=== PATIENT | male | born 1960 | race Caucasian/White ===

== ENCOUNTER 2017-05-28 16:02 | Emergency (ER) | payer OTHER ==
[~2017-05-28] VITALS: Ht 172.7 cm; Wt 72.7 kg
[2017-05-28 16:13] VITALS: TEMP 36.9; Ht 172.7 cm; Wt 72.7 kg
[2017-05-28 17:03] LABS: BASO % 0.5 %; BASO ABS # 0.03 K/uL (0-0.2); COMPLETE YES; EOS % 0.9 %; HEMATOCRIT 40.1 % (42-52); IG% 0.2 %; LYMPH % 20.7 %; LYMPH ABS # 1.34 K/uL (1.2-3.4); MEAN CELL VOLUME 87.9 fL (80-100); MEAN CORPUSCULAR HEMOGLOBIN 28.9 pg (25-34); MEAN CORPUSCULAR HGB CONC 32.9 g/dl (32-36); MEAN PLATELET VOLUME 8.6 fL (7.4-10.4); MONO % 5.9 %; NEUT % 71.8 %; PLATELET COUNT 234 K/uL (130-400); RED BLOOD COUNT 4.56 M/uL (4.7-6.1); WHITE BLOOD COUNT 6.46 K/uL (4.8-10.8)
[2017-05-28 17:19] LABS: BLOOD UREA NITROGEN 9 mg/dl (7-18); GLUCOSE 93 mg/dl (70-99)
[2017-05-28 17:20] LABS: BUN/CREATININE RATIO 9.1 (10-20); C-REACTIVE PROTEIN < 0.29 mg/dl (0-0.29); CALCIUM 9.3 mg/dl (8.5-10.1); CARBON DIOXIDE 29 mmol/L (21-32); CHLORIDE 106 mmol/L (98-107); SODIUM 140 mmol/L (136-145)
--- NOTE | 2017-05-28 17:24 | EMERGENCY ROOM VISIT NOTE ---
History Report prepared by Melina: Buzz Horne Under the Supervision of: Dr. Quan Guillermo M.D. First contact with patient: 16:33 Chief Complaint: HEADACHE Stated Complaint: HEACACHE, TINGLE FEELING IN ARMS/HEAD/LEGS History of Present Illness The patient is a 57 year old male who presents to the Emergency Room with complaints of a constant headache beginning around 25 days ago. He currently rates his pain a 4/10 in severity. The patient states his symptoms began 25 days ago with a headache. He reports he buried his dog and dug a huge hole to place the dog in before his onset. The patient notes he was crying a lot and thought that was why his headache started. He states that his headache has persisted since. The patient reports 13 days ago, the numbness in his arms began and spread to his legs. He notes he saw his PCP and was placed on Doxy for a potential tick bite. The patient states he had blood work drawn and his levels were okay. He reports he has tried Advil for his discomfort, but it has not helped. The patient notes he saw a neurologist yesterday for numbness to the extremities, and he has an MRI scheduled in 5 days. He states he came to the ED today because he moved a 30lb piece of equipment, and he started to feel extremely weird on the right side. The patient reports it lasted for 45 minutes in his legs, and it is still present in his arms. He notes he did not lose leaf fat scraper strength, it just feels tingly. The patient states it feels like there is pressure behind his ears. Pt denies LOC, fevers, chills, diaphoresis, visual changes, neck pain, chest pain, breathing difficulties, nausea, vomiting, abdominal pain, back pain, melena, hematochezia, urinary symptoms, weakness, lymphadenopathy, rash, or other complaints. Source of History: patient Onset: 25 days ago Position: head Quality: ache Timing: constant Associated Symptoms: + numbness (to the arms and legs) Note: Associated symptoms: pressure behind the ears Review of Systems See HPI for pertinent positives and negatives. A total of ten systems were reviewed and were otherwise negative. Past Medical & Surgical The patient states he does not have a pertinent medical or surgical history. Family History Cancer Diabetes mellitus Gallbladder disease Hypertension Lung disease Social History Smoking Status: Never Smoker Smokeless Tobacco Use: No Alcohol Use: occasionally Marital Status: Housing Status: lives with significant other Occupation Status: employed Current/Historical Medications No Active Prescriptions or Reported Meds Allergies Coded Allergies: No Known Allergies (Unverified , 05/28/17) Physical Exam Vital Signs Date Time Temp Pulse Resp B/P (MAP) Pulse Ox O2 Delivery O2 Flow Rate FiO2 05/28/17 22:20 57 21 98 05/28/17 22:05 53 14 98 05/28/17 22:02 104/64 05/28/17 21:50 72 12 98 05/28/17 21:45 55 14 98 05/28/17 21:31 131/80 05/28/17 21:30 58 14 97 05/28/17 21:15 55 21 98 05/28/17 21:01 108/77 05/28/17 21:00 55 13 96 05/28/17 20:49 133/81 05/28/17 18:09 62 05/28/17 18:07 63 13 98 05/28/17 18:02 65 16 99 05/28/17 18:01 138/85 05/28/17 17:40 140/87 05/28/17 17:32 60 21 05/28/17 16:13 36.9 66 16 133/87 97 Room Air Physical Exam GENERAL: Awake, alert, well appearing, no distress HENT: Normocephalic, atraumatic. TM's normal. Oropharynx unremarkable. EYES: PERRL. EOMI. Normal conjunctiva. Sclera non-icteric. NECK: Supple. No nuchal rigidity. FROM. No JVD or bruit. RESPIRATORY: CTA CARDIAC: RRR. No murmur. ABDOMEN: Soft, non distended. No tenderness to palpation. No rebound or guarding. No masses. RECTAL: Deferred. MUSCULOSKELETAL: Unremarkable. No edema. No discoloration. Gross motor strength symmetric. NEURO: Cranial nerves 2-12 grossly intact. Normal sensorium. No sensory or motor deficits noted. Speech normal. No pronator drift. Normal heal to dias. Normal rapid alternating movement. SKIN: No rash or jaundice noted. LYMPH: No adenopathy. Medical Decision & Procedures ER Provider Diagnostic Interpretation: Radiology results as stated below per my review and radiologist interpretation: CERVICAL SPINE MRI WITH AND WITHOUT CONTRAST HISTORY: HEADACHES, U/L EXTREMITY NUMBNESS, R>L . REF. BY NEUROLOGY. TECHNIQUE: Multiplanar multisequence MRI of the cervical spine was performed both before and after the use of intravenous contrast. COMPARISON STUDY: None. FINDINGS: Alignment and curvature intact. No fracture or subluxation. Prevertebral soft tissues and the C1-C2 interval are intact. No abnormal enhancement. The cervical spinal cord is normal in course, caliber, and signal intensity. Minimal disc space narrowing at C4-C5 and C5-C6. C2-C3: No significant central canal or neural foraminal narrowing. C3-C4: Tiny broad-based posterior disc bulge which abuts but does not displace the anterior cord. No neural foraminal narrowing. C4-C5: Tiny broad-based posterior disc bulge with a tiny focal central annular tear. This abuts but does not displace the cord. No neural foraminal narrowing. C5-C6: Tiny broad-based posterior disc bulge which abuts but does not displace the cord. No neural foraminal narrowing. C6-C7: Tiny broad-based posterior disc bulge without significant central canal or neural foraminal narrowing. C7-T1: No significant central canal or neural foraminal narrowing. IMPRESSION: Minimal degenerative changes as described above. No significant central canal or neural foraminal narrowing. Electronically signed by: Bennett Nick M.D. 05/28/2017 9:02 PM Dictated Date/Time: 05/28/2017 8:56 PM Brain MRI WITH AND WITHOUT CONTRAST HISTORY: HEADACHES, U/L EXTREMITY NUMBNESS, R>L . REF. BY NEUROLOGY. TECHNIQUE: Multiplanar multisequence MRI of the brain was performed both before and after the intravenous administration of contrast. COMPARISON STUDY: None. FINDINGS: There are no areas of restricted diffusion to suggest acute infarction. The midline structures are intact. The paranasal sinuses are clear. The mastoid air cells are clear. The ventricles and sulci are within normal limits for age. There is no mass, hematoma, midline shift. The major vascular flow-voids at the skull base are well maintained. Postcontrast sequences show no areas of abnormal enhancement. Within the right petrous apex there is a 1.5 x 1.0 cm septated T1 and T2 hyperintense focus. This favors a cholesterol granuloma. IMPRESSION: 1 No acute intracranial abnormality. 2. A 1.5 x 1.2 cm T1 and T2 hyperintense focus within the right petrous apex. This favors a cholesterol granuloma. Electronically signed by: Bennett Nick M.D. 05/28/2017 8:56 PM Dictated Date/Time: 05/28/2017 8:50 PM Laboratory Results 05/28/17 16:45 Red Blood Count 4.56, Mean Corpuscular Volume 87.9, Mean Corpuscular Hemoglobin 28.9, Mean Corpuscular Hemoglobin Concent 32.9, Mean Platelet Volume 8.6, Neutrophils (%) (Auto) 71.8, Lymphocytes (%) (Auto) 20.7, Monocytes (%) (Auto) 5.9, Eosinophils (%) (Auto) 0.9, Basophils (%) (Auto) 0.5, Neutrophils # (Auto) 4.64, Lymphocytes # (Auto) 1.34, Monocytes # (Auto) 0.38, Eosinophils # (Auto) 0.06, Basophils # (Auto) 0.03 05/28/17 16:45 Test 05/28/17 16:45 White Blood Count 6.46 K/uL (4.8-10.8) Red Blood Count 4.56 M/uL (4.7-6.1) Hemoglobin 13.2 g/dL (14.0-18.0) Hematocrit 40.1 % (42-52) Mean Corpuscular Volume 87.9 fL (80-100) Mean Corpuscular Hemoglobin 28.9 pg (25-34) Mean Corpuscular Hemoglobin Concent 32.9 g/dl (32-36) Platelet Count 234 K/uL (130-400) Mean Platelet Volume 8.6 fL (7.4-10.4) Neutrophils (%) (Auto) 71.8 % Lymphocytes (%) (Auto) 20.7 % Monocytes (%) (Auto) 5.9 % Eosinophils (%) (Auto) 0.9 % Basophils (%) (Auto) 0.5 % Neutrophils # (Auto) 4.64 K/uL (1.4-6.5) Lymphocytes # (Auto) 1.34 K/uL (1.2-3.4) Monocytes # (Auto) 0.38 K/uL (0.11-0.59) Eosinophils # (Auto) 0.06 K/uL (0-0.5) Basophils # (Auto) 0.03 K/uL (0-0.2) RDW Standard Deviation 39.0 fL (36.4-46.3) RDW Coefficient of Variation 12.1 % (11.5-14.5) Immature Granulocyte % (Auto) 0.2 % Immature Granulocyte # (Auto) 0.01 K/uL (0.00-0.02) Erythrocyte Sedimentation Rate 3 mm/hr (0-14) Anion Gap 5.0 mmol/L (3-11) Est Creatinine Clear Calc Drug Dose 80.7 ml/min Estimated GFR () 97.8 Estimated GFR (Non- 84.4 BUN/Creatinine Ratio 9.1 (10-20) Calcium Level 9.3 mg/dl (8.5-10.1) C-Reactive Protein < 0.29 mg/dl (0-0.29) Lyme Disease IgG Antibody NEG (NEG) Lyme Disease IgM Antibody NEG (NEG) Laboratory results reviewed by me ED Course 164: The patient was evaluated in room C11B. A complete history and physical exam was performed. 1654: I discussed the patient's case with Dr. Thornton, Neurology. He recommended getting an MRI of the brain and cervical spine, both with and without contrast. 2004: Ordered Gadobutrol 7mmol IV 2047: I reevaluated the patient, and he is still experiencing his symptoms. 2221: I reevaluated the patient. Discussed results and discharge instructions: he verbalized understanding and agreement. The patient is ready for discharge. Medical Decision Triage Nursing notes reviewed. The patient's presentation and history were concerning for numbness and headache. Etiologies such as MS, migraine, tumor, headache, sinus thrombosis, CVA, ICH, SAH, infection, as well as others were entertained. Patient was evaluated. He noted unusual sensations but had no focal deficits on examination. [place] that symptoms were worsening. I did discuss with his neurologist, Dr. Thornton who recommended MRI with and without contrast cervical spine. These were ordered. Blood work was ordered. Laboratory testing was unremarkable. MR imaging was unremarkable as noted above. As the patient is stable at this time and there are no major issues on MR imaging he is stable for discharge and outpatient follow-up. The exact etiology of his symptoms is not obvious. Further evaluation by neurology in his PCP will be necessary.I gave my usual and customary discussion regarding this issue. By the evaluation outlined above other emergent etiologies such as those listed in the differential, as well as others, were deemed relatively unlikely. The patient was educated about the findings as listed above. All questions were answered and the patient was pleased with the treatment. Return instructions were outlined and the patient was discharged in stable condition. The patient was referred to neurology and his PCP for follow-up for a recheck of the current condition. Impression Primary Impression: Numbness Additional Impression: Headache Scribe Attestation The scribe's documentation has been prepared under my direction and personally reviewed by me in its entirety. I confirm that the note above accurately reflects all work, treatment, procedures, and medical decision making performed by me. Departure Information Dispostion Home / Self-Care Prescriptions No Active Prescriptions or Reported Meds Referrals Horace Porras M.D. (PCP) Forms HOME CARE DOCUMENTATION FORM, IMPORTANT VISIT INFORMATION Patient Instructions My [facility] Additional Instructions Continue current medications. Tylenol: Take 1000 mg every 6 hours as needed for pain. Do not take more than 3000 mg in a 24 hour period. And/or Ibuprofen(Motrin, Advil) may be used for fever or pain. Use 600mg every six hours as needed. Take with food. Avoid using more than 2400mg in a 24 hour period. Do not use 2400mg per day for more than three consecutive days without physician direction. Prolonged inappropriate use can lead to stomach upset or ulcers. Return to the ER for headache, passing out, difficulty breathing, fevers, numbness, tingling, worsening of your condition, or as needed. Follow up with your primary physician tomorrow. Problem Qualifiers
[2017-05-28 18:25] LABS: LYME DISEASE AB IGG NEG (NEG); LYME DISEASE AB IGM NEG (NEG)
[2017-05-28] MEDS ORDERED: GADAVIST IV PRN (20:05)
--- NOTE | 2017-05-28 20:58 | DIAGNOSTIC IMAGING REPORT ---
Brain MRI WITH AND WITHOUT CONTRAST HISTORY: HEADACHES, U/L EXTREMITY NUMBNESS, R>L . REF. BY NEUROLOGY. TECHNIQUE: Multiplanar multisequence MRI of the brain was performed both before and after the intravenous administration of contrast. COMPARISON STUDY: None. FINDINGS: There are no areas of restricted diffusion to suggest acute infarction. The midline structures are intact. The paranasal sinuses are clear. The mastoid air cells are clear. The ventricles and sulci are within normal limits for age. There is no mass, hematoma, midline shift. The major vascular flow-voids at the skull base are well maintained. Postcontrast sequences show no areas of abnormal enhancement. Within the right petrous apex there is a 1.5 x 1.0 cm septated T1 and T2 hyperintense focus. This favors a cholesterol granuloma. IMPRESSION: 1 No acute intracranial abnormality. 2. A 1.5 x 1.2 cm T1 and T2 hyperintense focus within the right petrous apex. This favors a cholesterol granuloma. Electronically signed by: Bennett Nick M.D. 05/28/2017 8:56 PM Dictated Date/Time: 05/28/2017 8:50 PM
--- NOTE | 2017-05-28 21:03 | DIAGNOSTIC IMAGING REPORT ---
CERVICAL SPINE MRI WITH AND WITHOUT CONTRAST HISTORY: HEADACHES, U/L EXTREMITY NUMBNESS, R>L . REF. BY NEUROLOGY. TECHNIQUE: Multiplanar multisequence MRI of the cervical spine was performed both before and after the use of intravenous contrast. COMPARISON STUDY: None. FINDINGS: Alignment and curvature intact. No fracture or subluxation. Prevertebral soft tissues and the C1-C2 interval are intact. No abnormal enhancement. The cervical spinal cord is normal in course, caliber, and signal intensity. Minimal disc space narrowing at C4-C5 and C5-C6. C2-C3: No significant central canal or neural foraminal narrowing. C3-C4: Tiny broad-based posterior disc bulge which abuts but does not displace the anterior cord. No neural foraminal narrowing. C4-C5: Tiny broad-based posterior disc bulge with a tiny focal central annular tear. This abuts but does not displace the cord. No neural foraminal narrowing. C5-C6: Tiny broad-based posterior disc bulge which abuts but does not displace the cord. No neural foraminal narrowing. C6-C7: Tiny broad-based posterior disc bulge without significant central canal or neural foraminal narrowing. C7-T1: No significant central canal or neural foraminal narrowing. IMPRESSION: Minimal degenerative changes as described above. No significant central canal or neural foraminal narrowing. Electronically signed by: Bennett Nick M.D. 05/28/2017 9:02 PM Dictated Date/Time: 05/28/2017 8:56 PM
[2017-05-28 22:02] VITALS: BP 104/64
[2017-05-28 22:20] VITALS: PULSE 57; O2SAT 98
== END 2017-05-28 22:22 | disposition home or self-care (01) ==
LOC: C.EDB 16:02 → C.EDC 22:22
DX: R20.0 Anesthesia of skin (principal); R51 Headache; Z83.3 Family history of diabetes mellitus; Z82.49 Family history of ischemic heart disease and other diseases of the circulatory system

== ENCOUNTER → 2017-06-18 | Day surgery (SDC) | payer OTHER ==
[~2017-06-18] VITALS: Ht 172.7 cm; Wt 75.0 kg
[2017-06-18] VITALS (10 sets, daily range): BP systolic 123–149; BP diastolic 74–88; PULSE 61–75; TEMP 36.7–37; O2SAT 96–100; Ht 172.7 cm; Wt 75.0 kg
[~2017-06-18] MED LIST: ACETAMINOPHEN 500 MG TAB PO PRN
--- NOTE | 2017-06-18 09:07 | DIAGNOSTIC IMAGING REPORT ---
FLUOROSCOPICALLY GUIDED LUMBAR PUNCTURE CLINICAL HISTORY: Numbness and tingling in extremities. FLUOROSCOPY TIME: 0.3 minutes. Single fluoroscopic spot image of the lumbar spine. PROCEDURE: The procedure, risks and benefits were discussed with the patient including the risk of spinal headache, bleeding and infection. The patient agreed to the procedure and informed written consent was obtained. The procedure was performed by Dr. Nick following a timeout. The left L4-5 interlaminar space was targeted. Skin overlying the space was prepped and draped in the usual sterile fashion and local anesthesia was achieved with 1% lidocaine. Under intermittent fluoroscopic guidance, a 20-gauge x 3 1/2 in. Sprotte needle was inserted into the thecal sac. A total of 10 cc of clear, colorless cerebral spinal fluid was obtained and spread amongst 4 vials. The patient tolerated the procedure well. There were no immediate complications. The specimens were sent to the laboratory at the request of the referring physician. IMPRESSION: Successful fluoroscopic guided lumbar puncture with removal of 10 cc of clear, colorless cerebral spinal fluid. No immediate complications. Electronically signed by: Bennett Nick M.D. 06/18/2017 9:05 AM Dictated Date/Time: 06/18/2017 9:05 AM
[2017-06-18 09:13] LABS: CSF CHEMISTRY TUBE # 1
[2017-06-18 09:20] LABS: CSF TOTAL PROTEIN 38.1 mg/dl (15.0-45.0)
--- NOTE | 2017-06-18 10:15 | Discharge Instructions ---
Discharge Instructions Procedure Procedure Date: Jun 18, 2017. Reason for visit: Numbness/Tingling. Discharge Discharge Date: Jun 18, 2017. Discharge Diagnosis: same Instructions Activity Recommendations: No limitations Return to School/Work: no limitations Recommended Home Diet: Resume Previous Diet Provider Instructions: ACTIVITY RECOMMENDATIONS: * Rest today. * Resume regular activity in one day. MEDICATIONS: * May take Tylenol or Ibuprofen as needed for pain. DIET: * Resume previous diet. SPECIAL CARE INSTRUCTIONS: Call your doctor if: * Temperature above 101 degrees F. * Pain not relieved by pain medicine ordered. * Increased drainage or redness from incision. * Notify your doctor with any questions or concerns. Call your doctor or go to the nearest Emergency Department if you experience: * Increased chest pain or shortness of breath. FOLLOW UP VISIT: Follow-up with Referring Physician as scheduled. Allergies Coded Allergies: No Known Allergies (Unverified , 06/18/17) Arnoldo Puckett Recommendations: Call your doctor if: * Temperature above 101 degrees * Pain not relieved by pain medicine ordered * There is increased drainage or redness from any incision * You have any unanswered questions or concerns. Your Doctors Instructions noted above were prepared by provider Bennett Nick. Patient Signature Section: Patient Instructions Signature Page Mikey Adan Patient (or Guardian) Signature/Date: I have read and understand the instructions given to me by my caregivers. Caregiver/RN/Doctor Signature/Date: The above-named patient and/or guardian has received patient instructions on this date. + Original Patient Signature Page (only) stays with chart. Please make copy for patient.
[2017-06-18 10:29] LABS: CSF APPEARANCE CLEAR; CSF COLOR COLORLESS; CSF XANTHOCHROMIC NO XANTHOCHROMIA
[2017-06-24 09:06] LABS: HSV TYPE 1 DNA Not Detected (Not Detected); HSV TYPE 1&2 DNA SOURCE CSF; HSV TYPE 2 DNA Not Detected (Not Detected); IGG CSF 1.5 mg/dL (0.8-7.7); IGG SERUM 607 mg/dL (694-1618); LYME DNA PCR CSF OR SYNOVIAL Not detected (Not Detected); LYME DNA SOURCE CSF; LYME IGG CSF NO BANDS DETECTED; LYME IGM CSF NO BANDS DETECTED; MYELIN BASIC PROTEIN 663 <2.0 mcg/L (0.0-4.0)
== END | disposition home or self-care (01) ==
LOC: C.ACU 07:10
PROVIDERS: ATTEND Psychiatry & Neurology Neurology
DX: R20.0 Anesthesia of skin (principal)

== ENCOUNTER 2017-06-22 14:13 | Emergency (ER) | payer OTHER ==
[~2017-06-22] VITALS: Ht 172.7 cm; Wt 71.1 kg
[2017-06-22 14:17] VITALS: TEMP 36.7; Ht 172.7 cm; Wt 71.1 kg
--- NOTE | 2017-06-22 14:55 | EMERGENCY ROOM VISIT NOTE ---
History First contact with patient: 14:30 Chief Complaint: HEADACHE Stated Complaint: HEADACHE,NECK PAIN POST LUMBAR PUNCTURE History of Present Illness The patient is a 57 year old male who presents to the Emergency Room with complaints of a 5 day history of a worsening headache. He was being worked up for a 3 month history of low-grade headaches, fatigue and tingling in his arms and legs, and underwent a lumbar puncture 5 days ago. Since then, he reports that his usual headaches (3/10 in severity, all over his head) has now worsened to a 6/10 in severity, and is now associated with neck stiffness. He reports his headache is worse when standing up, and is improved by lying flat. He states his headache worsens as the day goes on, and he tries to work at the computer. He denies dizziness, rhinorrhea, fever, chills, weakness in the arms or legs, visual disturbance or any recent trauma/MVAs. He states he has been feeling nauseous with this headache, and has come close to vomiting. He reports photophobia, and states that advil and tylenol do not help much with the pain. Review of Systems See HPI for pertinent positives & negatives. A total of 10 systems reviewed and were otherwise negative. Past Medical/Surgical History Medical Problems: (1) No chronic diseases present Family History Cancer Diabetes mellitus Gallbladder disease Hypertension Lung disease Social History Smoking Status: Never Smoker Alcohol Use: occasionally Marital Status: Housing Status: lives with significant other Occupation Status: employed Current/Historical Medications No Active Prescriptions or Reported Meds Physical Exam Vital Signs Date Time Temp Pulse Resp B/P (MAP) Pulse Ox O2 Delivery O2 Flow Rate FiO2 06/22/17 16:51 71 16 130/86 99 Room Air 06/22/17 16:00 59 16 132/83 99 Room Air 06/22/17 14:17 36.7 75 18 132/85 97 Room Air Physical Exam HEENT: Head - normocephalic and atraumatic. Pupils are equal, round, and reactive to light. Extraocular eye muscles are intact and sclera are anicteric. Ears - bilaterally patent canals with noninjected tympanic membranes and no evidence of hemotympanum. Nose - moist nasal mucosa without discharge. Mouth - moist buccal mucosa. Oropharynx is nonerythematous and there is no tonsillar exudate or edema noted. Neck: Supple; no JVD, nuchal rigidity, cervical lymphadenopathy, or auscultated bruits. No tenderness on palpation, but he does report his headache and neck pain worsens when changing from looking upwards to looking down. Heart: Regular rate and rhythm. There is a normal S1 and S2 with no murmurs, clicks, or gallops appreciated. Lungs: Clear to auscultation bilaterally with no wheezes, rales, or rhonchi. Abdomen: Soft, completely nontender, nondistended, with good bowel sounds. There are no palpable pulsatile masses or hepatosplenomegaly. There is no guarding, rigidity, or rebound noted. Extremities: No evidence of cyanosis, clubbing, or edema. There are easily palpable peripheral pulses. Neuro:The patient is awake and alert, oriented to day, time, and place. Muscle strength is 5/5 in all 4 extremities. The patient has equal coater smoking pipe strength and equal pedal push and pull. There are no cerebellar signs. Medical Decision & Procedures Laboratory Results 06/22/17 15:35 Red Blood Count 4.22, Mean Corpuscular Volume 87.0, Mean Corpuscular Hemoglobin 31.8, Mean Corpuscular Hemoglobin Concent 36.5, Mean Platelet Volume 8.3, Neutrophils (%) (Auto) 73.3, Lymphocytes (%) (Auto) 19.4, Monocytes (%) (Auto) 6.2, Eosinophils (%) (Auto) 0.7, Basophils (%) (Auto) 0.3, Neutrophils # (Auto) 5.11, Lymphocytes # (Auto) 1.35, Monocytes # (Auto) 0.43, Eosinophils # (Auto) 0.05, Basophils # (Auto) 0.02 06/22/17 15:35 Test 06/22/17 15:35 White Blood Count 6.97 K/uL (4.8-10.8) Red Blood Count 4.22 M/uL (4.7-6.1) Hemoglobin 13.4 g/dL (14.0-18.0) Hematocrit 36.7 % (42-52) Mean Corpuscular Volume 87.0 fL (80-100) Mean Corpuscular Hemoglobin 31.8 pg (25-34) Mean Corpuscular Hemoglobin Concent 36.5 g/dl (32-36) Platelet Count 196 K/uL (130-400) Mean Platelet Volume 8.3 fL (7.4-10.4) Neutrophils (%) (Auto) 73.3 % Lymphocytes (%) (Auto) 19.4 % Monocytes (%) (Auto) 6.2 % Eosinophils (%) (Auto) 0.7 % Basophils (%) (Auto) 0.3 % Neutrophils # (Auto) 5.11 K/uL (1.4-6.5) Lymphocytes # (Auto) 1.35 K/uL (1.2-3.4) Monocytes # (Auto) 0.43 K/uL (0.11-0.59) Eosinophils # (Auto) 0.05 K/uL (0-0.5) Basophils # (Auto) 0.02 K/uL (0-0.2) RDW Standard Deviation 37.8 fL (36.4-46.3) RDW Coefficient of Variation 11.9 % (11.5-14.5) Immature Granulocyte % (Auto) 0.1 % Immature Granulocyte # (Auto) 0.01 K/uL (0.00-0.02) Prothrombin Time 11.4 SECONDS (9.0-12.0) Prothromb Time International Ratio 1.1 (0.9-1.1) Anion Gap 8.0 mmol/L (3-11) Est Creatinine Clear Calc Drug Dose 91.7 ml/min Estimated GFR () 112.1 Estimated GFR (Non- 96.7 BUN/Creatinine Ratio 8.4 (10-20) Calcium Level 8.8 mg/dl (8.5-10.1) Medications Administered Medications (Trade) Dose Ordered Sig/Katt Route Start Time Stop Time Status Last Admin Dose Admin Sodium Chloride 1,000 ml @ 999 mls/hr Q1H1M ONCE IV 06/22/17 15:15 06/22/17 16:15 DC 06/22/17 15:56 999 MLS/HR Caffeine Citrated 500 mg/Sodium Chloride 1,025 ml @ 512.5 mls/ hr TODAY@1600 IV 06/22/17 16:00 06/22/17 19:00 06/22/17 16:23 512.5 MLS/HR Diphenhydramine HCl (Benadryl Inj) 50 mg STK-MED ONCE .ROUTE 06/22/17 15:50 06/22/17 15:51 DC 06/22/17 15:56 25 MG Prochlorperazine Edisylate (Compazine Inj) 10 mg STK-MED ONCE .ROUTE 06/22/17 15:50 06/22/17 15:51 DC 06/22/17 15:56 5 MG ED Course 14:34: The patient was evaluated in room B9. 14:55: The case was discussed with the attending, Dr. Whelan 15:48: The patient reports his headache is improving with the compazine. I explained his headache is likely due to a spinal leak, and we will try fluids and caffeine first, before calling anesthesiology and stepping up to a blood patch. He was in agreement with this plan 17:11: Patient was re-evaluated. He is sitting up and reports an improvement in his headache. Will try having him walk around to see how he fares with the headache. 17:35: Patient states he is feeling fine. Will go for a walk around the halls. 17:53: Patient states he is fine with standing and walking around. Headache has not returned. Patient states he is comfortable being discharged. Medical Decision The patient is a 57 year old male who presents to the Emergency Room with complaints of a 5 day history of a worsening headache following a lumbar puncture. Differentials include: spinal headache, meningitis, migraine, cluster headache, tension headache. His bloodwork came back negative for an infection - WCC was normal. Given that his symptoms improved with 1L bolus and IV caffeine, his symptoms were likely due to a spinal headache. Impression Primary Impression: Spinal headache Departure Information Dispostion Home / Self-Care Prescriptions No Active Prescriptions or Reported Meds Referrals Horace Porras M.D. (PCP) Patient Instructions My [facility] Additional Instructions You came to [facility] emergency department due to a severe headache that occurred after you had your lumbar puncture 5 days ago. We checked your white cell count while you were here to ensure your symptoms were not due to an infection, and they were normal. Your headache was likely a spinal headache, which occurs when your spinal fluid leaks through the puncture hole that was made during your lumbar puncture. This leakage decreases the pressure in your spinal fluid system which subsequently causes a headache. We treated you with intravenous fluids and caffeine. Please continue to drink plenty of fluids and caffeine when you return home, and lay down flat as you have been doing to alleviate your symptoms. As you start to feel better, you can resume regular activities as tolerated. If your headache worsens again or if you experience nausea, vomiting, problems with your vision, or ringing in your ears, please come back to the emergency department. Resident Tracking Resident Involvement: Resident Care Provided Care Provided: Adult ED
[2017-06-22] MEDS ORDERED: PROCHLORPERAZINE MALEATE 5 MG TAB PO ONE (15:15)
[2017-06-22] MEDS ORDERED: SODIUM CHLORIDE 0.9% 1000ML 1,000 ML IV ONE (15:15)
[2017-06-22] MEDS ORDERED: DiphenhydrAMINE HCL 50 MG/ML VIAL ONE (15:50)
[2017-06-22] MEDS ORDERED: PROCHLORPERAZINE 5 MG/ML 2 ML VIAL ONE (15:50)
[2017-06-22 15:51] LABS: BASO % 0.3 %; BASO ABS # 0.02 K/uL (0-0.2); COMPLETE YES; EOS % 0.7 %; HEMATOCRIT 36.7 % (42-52); IG% 0.1 %; LYMPH % 19.4 %; LYMPH ABS # 1.35 K/uL (1.2-3.4); MEAN CORPUSCULAR HEMOGLOBIN 31.8 pg (25-34); MEAN CORPUSCULAR HGB CONC 36.5 g/dl (32-36); MEAN PLATELET VOLUME 8.3 fL (7.4-10.4); MONO % 6.2 %; NEUT % 73.3 %; PLATELET COUNT 196 K/uL (130-400); RED BLOOD COUNT 4.22 M/uL (4.7-6.1); WHITE BLOOD COUNT 6.97 K/uL (4.8-10.8)
[2017-06-22 15:57] LABS: INR 1.1 (0.9-1.1); PROTHROMBIN TIME (PATIENT) 11.4 SECONDS (9.0-12.0)
[2017-06-22] MEDS ORDERED: CAFFEINE CITRATE 500 MG in SODIUM CHLORIDE 0.9% 1000ML 1,000 ML IV SCH (16:00)
[2017-06-22 16:11] LABS: BUN/CREATININE RATIO 8.4 (10-20); CALCIUM 8.8 mg/dl (8.5-10.1); CREATININE 0.88 mg/dl (0.60-1.40); POTASSIUM 3.9 mmol/L (3.5-5.1)
--- NOTE | 2017-06-22 18:09 | EMERGENCY ROOM VISIT NOTE ---
History Report prepared by Melina: Phill Villa Under the Supervision of: Dr. Jigar Whelan M.D. First contact with patient: 14:29 Chief Complaint: HEADACHE Stated Complaint: HEADACHE,NECK PAIN POST LUMBAR PUNCTURE History of Present Illness The patient is a 57 year old male who presents to the Emergency Room with complaints of a worsening headache that started a few days ago after having a lumbar puncture 4 days. He says that he is currently in the process of getting worked up for a low-grade headache and fatigue, with bilateral numbness and tingling in his extremities. He states that his headache was diffuse previously and a 3 out of 10 in severity, but after the lumbar puncture, his headache slowly worsened to the point of it being a 6 out of 10 in severity, and the headache is now mostly localized in his frontal region. The patient notes that the headache is worsened with standing and relieved by laying flat. He describes his headache has dull and throbbing. He notes that he has taken Tylenol and Advil, which takes the edge off the pain but does not help much. He says that he has been nauseous but has not vomited, but has come close. He states that the headache gets worse as the day goes on. The patient adds that he has had some photophobia, but denies any visual disturbances. He says that he started to get some neck pain and stiffness a couple days ago. The patient denies any fevers, chills, or recent trauma. He is a non-smoker, and does not drink alcohol or use recreational drugs. He does regularly drink caffeine. The patient notes that there were no complications with the lumbar puncture. Source of History: patient Onset: A few days ago after lumbar puncture 4 days ago Position: head (frontal region mostly) Symptom Intensity: up to a 6/10 Quality: ache, dull, other (throbbing) Timing: worsening Modifying Factors (Worsening): other (standing) Modifying Factors (Relieving): other (laying down) Associated Symptoms: + neck pain, + nausea, + fatigue, No fevers, No chills , No vomiting Note: Associated symptoms: Photophobia. Bilateral tingling and numbness for past month or so. Denies visual disturbances. Review of Systems See HPI for pertinent positives & negatives. A total of 10 systems reviewed and were otherwise negative. Past Medical & Surgical Medical Problems: (1) No chronic diseases present Family History Cancer Diabetes mellitus Gallbladder disease Hypertension Lung disease Social History Smoking Status: Never Smoker Alcohol Use: occasionally Marital Status: Housing Status: lives with significant other Occupation Status: employed Current/Historical Medications No Active Prescriptions or Reported Meds Allergies Coded Allergies: No Known Allergies (Unverified , 06/22/17) Physical Exam Vital Signs Date Time Temp Pulse Resp B/P (MAP) Pulse Ox O2 Delivery O2 Flow Rate FiO2 06/22/17 16:51 71 16 130/86 99 Room Air 06/22/17 16:00 59 16 132/83 99 Room Air 06/22/17 14:17 36.7 75 18 132/85 97 Room Air Physical Exam Constitutional: Vital signs reviewed. Eyes: Pupils are equal round reactive to light. Conjunctiva are noninjected. ENT: Pharynx is clear without erythema or exudate. Mucous membranes are moist. Neck supple without meningeal signs. Respiratory: Clear to auscultation bilaterally. Breath sounds are equal bilaterally. Cardiovascular: Regular rate and rhythm. No rubs or gallops. GI: Soft, nondistended and nontender. Bowel sounds are present. Musculoskeletal: No tenderness or signs of erythema to the lumbar spine. No peripheral edema. Integumentary: No cyanosis. Neurological: The patient is awake and alert. Cranial nerves II-XII are intact. Motor is 5 out of 5 all extremities. Sensation is intact to light touch all extremities. Normal speech. No pronator drift. Psychiatric: Normal affect. Medical Decision & Procedures Laboratory Results 06/22/17 15:35 Red Blood Count 4.22, Mean Corpuscular Volume 87.0, Mean Corpuscular Hemoglobin 31.8, Mean Corpuscular Hemoglobin Concent 36.5, Mean Platelet Volume 8.3, Neutrophils (%) (Auto) 73.3, Lymphocytes (%) (Auto) 19.4, Monocytes (%) (Auto) 6.2, Eosinophils (%) (Auto) 0.7, Basophils (%) (Auto) 0.3, Neutrophils # (Auto) 5.11, Lymphocytes # (Auto) 1.35, Monocytes # (Auto) 0.43, Eosinophils # (Auto) 0.05, Basophils # (Auto) 0.02 06/22/17 15:35 Test 06/22/17 15:35 White Blood Count 6.97 K/uL (4.8-10.8) Red Blood Count 4.22 M/uL (4.7-6.1) Hemoglobin 13.4 g/dL (14.0-18.0) Hematocrit 36.7 % (42-52) Mean Corpuscular Volume 87.0 fL (80-100) Mean Corpuscular Hemoglobin 31.8 pg (25-34) Mean Corpuscular Hemoglobin Concent 36.5 g/dl (32-36) Platelet Count 196 K/uL (130-400) Mean Platelet Volume 8.3 fL (7.4-10.4) Neutrophils (%) (Auto) 73.3 % Lymphocytes (%) (Auto) 19.4 % Monocytes (%) (Auto) 6.2 % Eosinophils (%) (Auto) 0.7 % Basophils (%) (Auto) 0.3 % Neutrophils # (Auto) 5.11 K/uL (1.4-6.5) Lymphocytes # (Auto) 1.35 K/uL (1.2-3.4) Monocytes # (Auto) 0.43 K/uL (0.11-0.59) Eosinophils # (Auto) 0.05 K/uL (0-0.5) Basophils # (Auto) 0.02 K/uL (0-0.2) RDW Standard Deviation 37.8 fL (36.4-46.3) RDW Coefficient of Variation 11.9 % (11.5-14.5) Immature Granulocyte % (Auto) 0.1 % Immature Granulocyte # (Auto) 0.01 K/uL (0.00-0.02) Prothrombin Time 11.4 SECONDS (9.0-12.0) Prothromb Time International Ratio 1.1 (0.9-1.1) Anion Gap 8.0 mmol/L (3-11) Est Creatinine Clear Calc Drug Dose 91.7 ml/min Estimated GFR () 112.1 Estimated GFR (Non- 96.7 BUN/Creatinine Ratio 8.4 (10-20) Calcium Level 8.8 mg/dl (8.5-10.1) Laboratory results as reviewed by me. Medications Administered Medications (Trade) Dose Ordered Sig/Katt Route Start Time Stop Time Status Last Admin Dose Admin Sodium Chloride 1,000 ml @ 999 mls/hr Q1H1M ONCE IV 06/22/17 15:15 06/22/17 16:15 DC 06/22/17 15:56 999 MLS/HR Caffeine Citrated 500 mg/Sodium Chloride 1,025 ml @ 512.5 mls/ hr TODAY@1600 IV 06/22/17 16:00 06/22/17 19:00 06/22/17 16:23 512.5 MLS/HR Diphenhydramine HCl (Benadryl Inj) 50 mg STK-MED ONCE .ROUTE 06/22/17 15:50 06/22/17 15:51 DC 06/22/17 15:56 25 MG Prochlorperazine Edisylate (Compazine Inj) 10 mg STK-MED ONCE .ROUTE 06/22/17 15:50 06/22/17 15:51 DC 06/22/17 15:56 5 MG ED Course 1434: The patient was evaluated in room B9 by the resident, Dr. Sullivan. A complete history and physical exam was performed. 1504: The patient was evaluated in room B9 by myself. A complete history and physical exam was performed. Ordered Caffeine Citrated 500 mg/Sodium Chloride 1025 ml @ 512.5 mls/hr IV. 1515: Ordered Benadryl Cap 25 mg PO, Compazine Tab 5 mg PO, NSS 1000 ml @ 999 mls/hr IV. 1645: I reevaluated the patient and he says that he feels drowsy but he does not have any significant headache. The patient is trying to sit up currently and see how he feels. 1600: Ordered Caffeine Citrated 500 mg/Sodium Chloride 1,025 ml @ 512.5 mls/hr IV. 1720: The patient is sitting up and does not have a headache. We will try to get the patient up and moving around. Medical Decision This is a 57-year-old male who presents with a headache after lumbar puncture. Differential diagnosis includes post-spinal headache, migraine headache, tension headache, cluster headache. I did perform a limited focused review of portions of the patient's old chart on the electronic medical record. The patient underwent a lumbar puncture on June [address] Nick of radiology. I did evaluate the patient as noted above. The patient has had a headache for some time and has been worked up for this. He had a lumbar puncture recently and noted a increase in his pain. He also states that the pain is worse when he stands up and better when he lies down. His symptoms are consistent with a post-LP headache. He is neurologically intact and has no meningeal signs. The puncture site appears to be well-healed without signs of infection. IV access was established. I did treat patient with normal saline IV. He is also given IV Compazine, Benadryl and caffeine. I did order and review the patient's blood work as noted in the electronic medical record. White blood cell count is not elevated. On reassessment the patient is feeling better. He is able to sit up and walk around without any significant increase of his headache. He did feel well enough for discharge and will continue caffeine intake and fluid intake. Should his headache become worse he will return for blood patch. Resident Physician Supervision Note: I did evaluate and examine this patient myself. I did guide management for the patient. I agree with the resident's (Dr. Sullivan) assessment as discussed. Please see the resident's dictation for further details. Medication Reconcilliation Current Medication List: was personally reviewed by me Blood Pressure Screening Patient's blood pressure: Elevated blood pressure Impression Primary Impression: Spinal headache Scribe Attestation The scribe's documentation has been prepared under my direct and personally reviewed by me in its entirety. I confirm that the note above accurately reflects all work, treatment, procedures, and medical decision making performed by me. Departure Information Dispostion Home / Self-Care Prescriptions No Active Prescriptions or Reported Meds Referrals Horace Porras M.D. (PCP) Patient Instructions My [facility]
[2017-06-22 18:25] VITALS: BP 131/76; PULSE 61; O2SAT 98
== END 2017-06-22 18:15 | disposition home or self-care (01) ==
LOC: C.EDB 14:14
DX: T88.59XA Other complications of anesthesia, initial encounter (principal); X58.XXXA Exposure to other specified factors, initial encounter; Z83.3 Family history of diabetes mellitus; Z82.49 Family history of ischemic heart disease and other diseases of the circulatory system

== ENCOUNTER 2017-08-20 16:26 | Observation (INO) | payer OTHER ==
[~2017-08-20] VITALS: Ht 175.3 cm; Wt 70.1 kg
[2017-08-20 16:52] LABS: BASO % 0.4 %; BASO ABS # 0.04 K/uL (0-0.2); EOS % 1.4 %; EOS ABS # 0.13 K/uL (0-0.5); HEMATOCRIT 39.6 % (42-52); HEMOGLOBIN 13.8 g/dL (14.0-18.0); IG# 0.03 K/uL (0.00-0.02); LYMPH % 15.5 %; LYMPH ABS # 1.43 K/uL (1.2-3.4); MEAN CELL VOLUME 88.8 fL (80-100); MEAN CORPUSCULAR HEMOGLOBIN 30.9 pg (25-34); MEAN CORPUSCULAR HGB CONC 34.8 g/dl (32-36); MEAN PLATELET VOLUME 8.5 fL (7.4-10.4); MONO % 5.2 %; MONO ABS # 0.48 K/uL (0.11-0.59); NEUT % 77.2 %; PLATELET COUNT 225 K/uL (130-400); RED CELL DISTRIBUTION WIDTH CV 12.2 % (11.5-14.5); RED CELL DISTRIBUTION WIDTH SD 39.2 fL (36.4-46.3); WHITE BLOOD COUNT 9.21 K/uL (4.8-10.8)
[2017-08-20] MEDS ORDERED: ALPR-412 PO (16:52)
[2017-08-20] MEDS ORDERED: FAMO20TA11 PO (16:54)
[2017-08-20] MEDS ORDERED: CALC500C3 PO (16:54)
[2017-08-20] MEDS ORDERED: NITROGLYCERIN 0.4 MG SL PER TAB CHARGE SL PRN ×2 (17:00→20:15)
[2017-08-20 17:03] LABS: BLOOD UREA NITROGEN 11 mg/dl (7-18); CALCIUM 9.2 mg/dl (8.5-10.1); CARBON DIOXIDE 29 mmol/L (21-32); CREATININE 0.94 mg/dl (0.60-1.40); GLUCOSE 91 mg/dl (70-99); SODIUM 139 mmol/L (136-145)
--- NOTE | 2017-08-20 17:06 | DIAGNOSTIC IMAGING REPORT ---
CHEST ONE VIEW PORTABLE CLINICAL HISTORY: 57 years-old Male presenting with Chest Pain. TECHNIQUE: Portable upright AP view of the chest was obtained. COMPARISON: 07/10/2016. FINDINGS: Cardiomediastinal silhouette normal. Lungs and pleural spaces clear. Osseous structures normal. Upper abdomen normal. IMPRESSION: 1. No acute cardiopulmonary disease. Electronically signed by: Juan Ga M.D. 08/20/2017 5:05 PM Dictated Date/Time: 08/20/2017 5:04 PM
[2017-08-20 17:08] LABS: CKMB 0.7 ng/ml (0.5-3.6)
[2017-08-20] MEDS ORDERED: MoRPHine SULFATE 4 MG/ML 1 ML CARP\\VIAL IV STA (17:55)
[2017-08-20] MEDS ORDERED: GI COCKTAIL PO ONE (18:00)
[2017-08-20] MEDS ORDERED: LIDOCAINE HCL 2% VISC SOLN 20 ML UDC ONE (18:13)
[2017-08-20] MEDS ORDERED: ALUMINUM/MAGNESIUM SUSP 30 ML UDC ONE (18:13)
[2017-08-20] MEDS ORDERED: ACETAMINOPHEN 325 MG TAB PO PRN (20:15)
[2017-08-20] MEDS ORDERED: ONDANSETRON INJ 2 MG/ML 2 ML VIAL IV PRN (20:15)
[2017-08-20] MEDS ORDERED: ALUMINUM/MAGNESIUM/SIMETH (MAALOX MAX) 30 ML UDC PO PRN (20:15)
[2017-08-20] MEDS ORDERED: MAGNESIUM HYDROXIDE SUSP 30 ML UDC PO PRN (20:15)
[2017-08-20] MEDS ORDERED: POLYETHYLENE (MIRALAX) 17 GM PACK PO PRN (20:15)
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
[2017-08-20] MEDS ORDERED: IV FLUIDS COMPLETED PRN (20:45)
[2017-08-20 21:00] VITALS: BP 148/65; PULSE 71; TEMP 36.6; O2SAT 96; Ht 175.3 cm; Wt 70.1 kg
[2017-08-20] MEDS: ALPRAZOLAM 0.25 MG TAB PO SCH (21:00)
--- NOTE | 2017-08-20 21:00 | NUR ---
A: PT ARRIVED VIA WHEELCHAIR FROM ED IN STABLE CONDITION. VERBAL REPORT OBTAINED FROM SUZIE GUNN. ORIENTED TO ROOM AND SURROUNDINGS. TELE VERIFIED. AT BEDSIDE. PLEASANT AND COOPERATIVE WITH CARE. A&O, VSS, DENIES PAIN/CHEST PAIN AT THIS TIME. LUNG SOUNDS CLEAR, ON ROOM AIR. NO SOB OR RESPIRATORY DISTRESS NOTED. NSR ON MONITOR, RATE 60'S. NO EDEMA. INDEPENDENT AND AMBULATORY IN ROOM. PLAN IS FOR STRESS ECHO IN AM. ENCOURAGED TO RING FOR ASSISTANCE. CALL KO WITHIN REACH, WILL CONTINUE TO MONITOR.
--- NOTE | 2017-08-20 23:34 | EMERGENCY ROOM VISIT NOTE ---
History Report prepared by Melina: Estee Valdez Under the Supervision of: Dr. Adryan Alexander D.O. First contact with patient: 16:32 Chief Complaint: CHEST PAIN Stated Complaint: CHEST PAIN History of Present Illness The patient is a 57 year old male who presents to the Emergency Room with complaints of intermittent chest pain that began almost 2 weeks ago. The patient describes his discomfort as sharp pain in the middle of his chest, behind his sternum. He notes that he feels his heart racing and some chest tightness. The patient notes some shortness of breath and nausea. He states that nothing seems to worsen his pain. The patient states that he thought it was possibly an acid reflux problem, noting he has been taking TUMS, which helped relieve some of his discomfort. He denies being a smoker. Patient denies swelling of calves, recent trips, history of immobilization or recent surgery, prior history of DVT, hemoptysis, history of malignancy, history of smoking, or control/estrogen use.Patient denies diabetes, hypertension, hyperlipidemia, CAD, history of sudden at a young age, and smoking. Pt denies headache, change in vision, fevers, vomiting, diarrhea, pain with urination, and melena. Source of History: patient Onset: 2 weeks ago Position: chest Quality: sharp Timing: intermittent Associated Symptoms: + SOB (some ), + nausea Review of Systems See HPI for pertinent positives & negatives. A total of 10 systems reviewed and were otherwise negative. Past Medical & Surgical Medical Problems: (1) Atypical chest pain (2) No chronic diseases present Family History Cancer Diabetes mellitus Gallbladder disease Hypertension Lung disease Social History Smoking Status: Never Smoker Alcohol Use: occasionally Marital Status: Housing Status: lives with significant other Occupation Status: employed Current/Historical Medications Scheduled Alprazolam (Alprazolam), 0.25 MG PO BID Scheduled PRN Calcium Carbonate (Tums), 500 MG PO DAILY PRN for HEARTBURN Famotidine (Pepcid), 20 MG PO DAILY PRN for HEARTBURN Allergies Coded Allergies: No Known Allergies (Unverified , 08/20/17) Physical Exam Vital Signs Date Time Temp Pulse Resp B/P (MAP) Pulse Ox O2 Delivery O2 Flow Rate FiO2 08/20/17 18:11 71 20 99 08/20/17 18:00 129/81 08/20/17 17:56 70 19 98 08/20/17 17:44 73 18 154/82 98 Room Air 08/20/17 17:41 66 14 08/20/17 17:30 154/82 08/20/17 17:26 68 22 08/20/17 17:11 62 11 08/20/17 17:00 138/85 08/20/17 16:56 64 14 08/20/17 16:42 71 08/20/17 16:41 71 18 08/20/17 16:37 97 Room Air 08/20/17 16:37 97 Room Air 08/20/17 16:37 159/98 08/20/17 16:30 36.9 81 16 151/87 97 Room Air Physical Exam GENERAL: Sitting up in bed, alert, well appearing, well nourished, no distress, non-toxic EYE EXAM: normal conjunctiva. OROPHARYNX: no exudate, no erythema, lips, buccal mucosa, and tongue normal and mucous membranes are moist NECK: supple, no nuchal rigidity, no adenopathy, non-tender LUNGS: Clear to auscultation. Normal chest wall mechanics HEART: no murmurs, S1 normal and S2 normal ABDOMEN: abdomen soft, non-tender, normo-active bowel sounds, no masses, no rebound or guarding. BACK: Back is symmetrical on inspection and there is no deformity, no midline tenderness, no CVA tenderness. SKIN: no rashes and no bruising UPPER EXTREMITIES: Upper extremities are equal bilateral. upper extremities are grossly normal. LOWER EXTREMITIES: Calves are equal bilateral. No pitting edema. NEURO EXAM: Normal sensorium, cranial nerves II-XII grossly intact, normal speech, no gross weakness of arms, no gross weakness of legs. Medical Decision & Procedures ER Provider Diagnostic Interpretation: Radiology results as stated below per my review and the radiologist's interpretation: CHEST ONE VIEW PORTABLE CLINICAL HISTORY: 57 years-old Male presenting with Chest Pain. TECHNIQUE: Portable upright AP view of the chest was obtained. COMPARISON: 07/10/2016. FINDINGS: Cardiomediastinal silhouette normal. Lungs and pleural spaces clear. Osseous structures normal. Upper abdomen normal. IMPRESSION: 1. No acute cardiopulmonary disease. Electronically signed by: Juan Ga M.D. 08/20/2017 5:05 PM Dictated Date/Time: 08/20/2017 5:04 PM Laboratory Results 08/20/17 16:38 Red Blood Count 4.46, Mean Corpuscular Volume 88.8, Mean Corpuscular Hemoglobin 30.9, Mean Corpuscular Hemoglobin Concent 34.8, Mean Platelet Volume 8.5, Neutrophils (%) (Auto) 77.2, Lymphocytes (%) (Auto) 15.5, Monocytes (%) (Auto) 5.2, Eosinophils (%) (Auto) 1.4, Basophils (%) (Auto) 0.4, Neutrophils # (Auto) 7.10, Lymphocytes # (Auto) 1.43, Monocytes # (Auto) 0.48, Eosinophils # (Auto) 0.13, Basophils # (Auto) 0.04 08/20/17 16:38 Test 08/20/17 16:38 White Blood Count 9.21 K/uL (4.8-10.8) Red Blood Count 4.46 M/uL (4.7-6.1) Hemoglobin 13.8 g/dL (14.0-18.0) Hematocrit 39.6 % (42-52) Mean Corpuscular Volume 88.8 fL (80-100) Mean Corpuscular Hemoglobin 30.9 pg (25-34) Mean Corpuscular Hemoglobin Concent 34.8 g/dl (32-36) Platelet Count 225 K/uL (130-400) Mean Platelet Volume 8.5 fL (7.4-10.4) Neutrophils (%) (Auto) 77.2 % Lymphocytes (%) (Auto) 15.5 % Monocytes (%) (Auto) 5.2 % Eosinophils (%) (Auto) 1.4 % Basophils (%) (Auto) 0.4 % Neutrophils # (Auto) 7.10 K/uL (1.4-6.5) Lymphocytes # (Auto) 1.43 K/uL (1.2-3.4) Monocytes # (Auto) 0.48 K/uL (0.11-0.59) Eosinophils # (Auto) 0.13 K/uL (0-0.5) Basophils # (Auto) 0.04 K/uL (0-0.2) RDW Standard Deviation 39.2 fL (36.4-46.3) RDW Coefficient of Variation 12.2 % (11.5-14.5) Immature Granulocyte % (Auto) 0.3 % Immature Granulocyte # (Auto) 0.03 K/uL (0.00-0.02) D-Dimer < 190 ug/L FEU (0-500) Anion Gap 6.0 mmol/L (3-11) Est Creatinine Clear Calc Drug Dose 88.8 ml/min Estimated GFR () 105.4 Estimated GFR (Non- 90.9 BUN/Creatinine Ratio 11.5 (10-20) Calcium Level 9.2 mg/dl (8.5-10.1) Total Creatine Kinase 82 U/L (39-308) Creatine Kinase MB 0.7 ng/ml (0.5-3.6) Creatine Kinase MB Ratio 0.9 (0-3.0) Troponin I < 0.015 ng/ml (0-0.045) Laboratory results per my review. Medications Administered Medications (Trade) Dose Ordered Sig/Katt Route Start Time Stop Time Status Last Admin Dose Admin Nitroglycerin (Nitrostat Tab) 0.4 mg Q5M PRN SL 08/20/17 17:00 08/20/17 21:39 DC 08/20/17 17:44 0.4 MG Miscellaneous Medication (Gi Cocktail) 24 ml NOW ONCE PO 08/20/17 18:00 08/20/17 18:01 DC 08/20/17 18:22 24 ML Morphine Sulfate (MoRPHine SULFATE INJ) 4 mg NOW STAT IV 08/20/17 17:55 08/20/17 17:57 DC 08/20/17 18:21 4 MG ECG Indication: chest pain Rate (beats per minute): 67 Rhythm: sinus rhythm Findings: Q waves (Septal), left axis deviation ED Course ED COURSE: Vital signs were reviewed and showed normal vital signs. The patients medical record was reviewed The above diagnostic studies were performed and reviewed. ED treatments and interventions as stated above. 1632: The patient was evaluated in room A2. A complete history and physical examination was performed. 1700: Ordered Nitroglycerin 0.4 mg SL. 1738: I reevaluated the patient, who states the pain is better. 1755: Ordered Morphine Sulfate Inj 4mg IV. 1800: Ordered GI cocktail 24ml PO. 1813: Ordered Lidocaine HCL 20ml and Maalox Susp 30ml. 1846: I reviewed the patient's case with Dr. Borja. He will evaluate the patient for further management. Medical Decision Differential diagnosis: Etiologies such as cardiac ischemia, aortic dissection, pulmonary embolism, pneumonia, pneumothorax, musculoskeletal, infections, pericarditis, myocarditis , esophageal rupture, gastrointestinal, as well as others were entertained. The patient is a 57 year old male who presents to the ED with complaints of chest pain. Patient has been having this off and on for the past week. Patient does have shortness of breath with this. CBC all BMP was unremarkable. Troponin was negative. D-dimer was negative. EKG was nonischemic. Chest x- ray was unremarkable. Patient was given nitroglycerin glycerin and accommodation with GI cocktail and morphine. He had resolution of his symptoms. He was updated bedside. He complained of multiple different types of chest pain and based on the symptoms I did elect to monitor him overnight after a long discussion with him and his . Medication Reconcilliation Current Medication List: was personally reviewed by me Blood Pressure Screening Patient's blood pressure: Normal blood pressure Consults Time Called: 1845 Consulting Physician: Dr. Borja, [facility] [place] Returned Call: 1845 I reviewed the patient's case with Dr. Borja. He will evaluate the patient for further management. Impression Primary Impression: Precordial chest pain Scribe Attestation The scribe's documentation has been prepared under my direction and personally reviewed by me in its entirety. I confirm that the note above accurately reflects all work, treatment, procedures, and medical decision making performed by me. Departure Information Dispostion Being Evaluated By Hospitalist Referrals Horace Porras M.D. (PCP) Forms Call Back Authorization, HOME CARE DOCUMENTATION FORM, IMPORTANT VISIT INFORMATION Patient Instructions [facility]
[2017-08-20 23:50] VITALS: BP 125/73; PULSE 72; TEMP 36.7; O2SAT 97
--- NOTE | 2017-08-21 00:01 | NUR ---
A/ID: REFER TO EMR FOR HEAD TO TOE ASSESSMENT. PT DENIES COMPLAINTS OF PAIN OR SHORTNESS OF BREATH AT PRESENT TIME. VSS. PT INDEPENDENT IN ROOM. CALL KO WITHIN REACH, WILL CONTINUE TO MONITOR. UNKNOWN D/C AT THIS TIME. PT IS OBSERVATION STATUS.
[2017-08-21 03:30] VITALS: BP 132/80; PULSE 54; TEMP 36.5; O2SAT 97
--- NOTE | 2017-08-21 04:00 | NUR ---
A: REFER TO EMR FOR HEAD TO TOE ASSESSMENT. PT DENIES COMPLAINTS OF PAIN OR SHORTNESS OF BREATH AT PRESENT TIME. VSS. PT REMAINS NPO FOR STRESS. WILL CONTINUE TO MONITOR.
[2017-08-21 07:32] VITALS: BP 119/83; PULSE 66; TEMP 37.1; O2SAT 98
--- NOTE | 2017-08-21 08:00 | NUR ---
A: Nursing assessment complete and documented in emr. A&O. VS WNL. Denies chest pain and sob. Occasional nausea per pt. SR per tele. Lungs cta. Independent in activity. No s/s of acute distress noted. Call garcia within reach and pt instructed to ring for assistance. Will continue to monitor. See emr for full assessment data.
[2017-08-21] MEDS: ALPRAZOLAM 0.25 MG TAB PO SCH ×2 (09:00→12:05)
[2017-08-21] MEDS ORDERED: PANTOprazole INJ 40 MG in SYRINGE 0 ML IV SCH (11:00)
--- NOTE | 2017-08-21 11:50 | EXERCISE STRESS ECHO ---
*NOTICE TO RECEIVING LIBERTARIAN AGENCY This information is strictly Confidential and protected under [place] law. [place] law prohibits you from making any further disclosure of this information unless further disclosure is expressly permitted by the written consent of the person to whom it pertains or is authorized by law. A general authorization for the release of medical or other information is not sufficient for this purpose. Hospital accepts no responsibility if the information is made available to any other person, INCLUDING THE PATIENT. Interpretation Summary * Name: LATRICE MAGANA Study Date: 08/21/2017 10:15 AM BP: 134/82 mmHg * Patient Location: C.2T\S\S230\S\2 HR: 64 * : 1960 (M/d/yyyy) Gender: Male Height: 69 in * Age: 57 yrs Ethnicity: [place] Weight: 156 lb * Ordering Physician: Diane Singh * Referring Physician: Self, Referred * Performed By: Josefa Rajan [facility] * * Reason For Study: CHEST PAIN * BSA: 1.9 m2 * -- Conclusions -- * 1. Negative exercise stress echo for ischemia at >100% MPHR. * 2. Negative stress ECG for ischemia. * 3. Above average functional capacity. Exercised 10:25 min, acheiving 12.4 METS. * 4. No exercise induced chest pain. Normal hemodynamic response to exercise. * 5. Normal resting LV size and function. EF 60-65%. Normal RV size and function. Mild mitral regurgitation. * 6. No prior studies for comparison. Procedure Details * ECHOEX, CPT #[id number] * ECHO COLOR FLOW, CPT #[id number] * ECHO DOPPLER, CPT #[id number] Left Ventricle * The left ventricle is grossly normal size. * There is normal left ventricular wall thickness. * Ejection Fraction = 60-65%. * The left ventricular ejection fraction increases normally with stress. The left ventricular end-systolic cavity size reduces post-stress (normal response). The left ventricular wall motion with stress is normal. Right Ventricle * The right ventricle is grossly normal size. * The right ventricular systolic function is normal as assessed by tricuspid annular plane systolic excursion (TAPSE) (normal >1.5 cm). Atria * The left atrial size is normal. * Borderline right atrial enlargement. * No ASD detected; PFO is not assessed. Mitral Valve * The mitral valve is grossly normal. * There is no mitral valve stenosis. * There is mild mitral regurgitation. Tricuspid Valve * Tricuspid stenosis is absent. * There is trace tricuspid regurgitation. Aortic Valve * The aortic valve opens well. * The aortic valve is trileaflet. * No hemodynamically significant valvular aortic stenosis. * There is no significant aortic regurgitation. Pulmonic Valve * The pulmonary valve is inadequately visualized, but the Doppler data is adequate for interpretation. * There is no pulmonic valvular regurgitation. Great Vessels * The aortic root and proximal ascending aorta are normal sized. Pericardium * There is no pericardial effusion. Stress Parameters * Normal baseline electrocardiogram. * Stress ECG: No ST changes. No arrhythmias. * Arrhythmia noted in recovery: occasional PVC's. * The stress portion of this study was personally supervised by the undersigned interpreting physician. * Rest heart rate was '64' BPM. * Rest blood pressure was '134/82' * Maximum heart rate achieved was 171 bpm. * Maximum heart rate was 103 % of maximum age-predicted heart rate. * Maximum blood pressure was '150/76' * Total exercise time was '10:25' * Maximum exercise MET level achieved was '12.40' METS * Maximum treadmill speed was '4.20' miles per hour. * Maximum treadmill elevation was '16.00'% grade. Left Ventricular Findings with Stress * The study was technically excellent with all images being of optimal quality. MMode 2D Measurements and Calculations IVSd 0.81 cm IVSs 1.2 cm LVIDd 5.0 cm LVIDs 3.2 cm LVPWd 0.93 cm LVPWs 1.3 cm IVS/LVPW 0.87 FS 34.9 % EDV(Teich) 117.2 ml ESV(Teich) 42.3 ml EF(Teich) 63.9 % EDV(cubed) 123.6 ml ESV(cubed) 34.1 ml EF(cubed) 72.4 % % IVS thick 52.3 % % LVPW thick 38.0 % LV mass(C)d 149.9 grams LV mass(C)dI 80.7 grams/m\S\2 LV mass(C)s 130.7 grams LV mass(C)sI 70.3 grams/m\S\2 SV(Teich) 74.9 ml SI(Teich) 40.3 ml/m\S\2 SV(cubed) 89.5 ml SI(cubed) 48.2 ml/m\S\2 Ao root diam 3.0 cm Ao root area 6.9 cm\S\2 ACS 2.1 cm LA dimension 2.0 cm LA/Ao 0.67 LVOT diam 1.8 cm LVOT area 2.5 cm\S\2 LVAd ap4 29.9 cm\S\2 LVLd ap4 7.3 cm EDV(MOD-sp4) 101.0 ml EDV(sp4-el) 103.1 ml LVAs ap4 16.5 cm\S\2 LVLs ap4 5.7 cm ESV(MOD-sp4) 40.1 ml ESV(sp4-el) 40.5 ml EF(MOD-sp4) 60.3 % EF(sp4-el) 60.8 % LVAd ap2 22.9 cm\S\2 LVLd ap2 6.9 cm EDV(MOD-sp2) 63.5 ml EDV(sp2-el) 64.8 ml LVAs ap2 12.5 cm\S\2 LVLs ap2 5.3 cm ESV(MOD-sp2) 24.6 ml ESV(sp2-el) 24.8 ml EF(MOD-sp2) 61.3 % EF(sp2-el) 61.7 % LVLd %diff -6.76 % EDV(MOD-bp) 83.4 ml LVLs %diff -6.76 % ESV(MOD-bp) 32.5 ml EF(MOD-bp) 61.1 % SV(MOD-sp4) 60.9 ml SI(MOD-sp4) 32.7 ml/m\S\2 SV(MOD-sp2) 38.9 ml SI(MOD-sp2) 20.9 ml/m\S\2 SV(MOD-bp) 50.9 ml SI(MOD-bp) 27.4 ml/m\S\2 SV(sp4-el) 62.7 ml SI(sp4-el) 33.7 ml/m\S\2 SV(sp2-el) 40.0 ml SI(sp2-el) 21.5 ml/m\S\2 Doppler Measurements and Calculations MV E max benji 106.8 cm/sec MV A max benji 60.9 cm/sec MV E/A 1.8 MV P1/2t max benji 131.1 cm/sec MV P1/2t 90.7 msec MVA(P1/2t) 2.4 cm\S\2 MV dec slope 423.5 cm/sec\S\2 MV dec time 0.23 sec Ao V2 max 163.1 cm/sec Ao max PG 10.6 mmHg Ao max PG (full) 6.2 mmHg BAIRON(V,A) 1.6 cm\S\2 BAIRON(V,D) 1.6 cm\S\2 LV V1 max PG 4.4 mmHg LV V1 max 105.2 cm/sec MR max benji 629.0 cm/sec MR max PG 158.2 mmHg PA V2 max 125.1 cm/sec PA max PG 6.3 mmHg TR max benji 259.4 cm/sec
[2017-08-21] MEDS ORDERED: RANI150T85 PO (13:05)
[2017-08-21] MEDS ORDERED: ZLF50 PO (13:05)
[2017-08-21] MEDS ORDERED: SERT1TAB88 PO (13:13)
[2017-08-21] MEDS ORDERED: PANT1TAB4 PO (13:17)
--- NOTE | 2017-08-21 13:19 | Discharge Instructions ---
Discharge Instructions Date of Service Aug 21, 2017. Admission Reason for Admission: Atypical Chest Pain Discharge Discharge Diagnosis / Problem: Atypical chest pain due to indigestion and anxiety Discharge Goals Goal(s): Decrease discomfort, Improve function, Increase independence, Improve disease control Activity Recommendations Activity Limitations: resume your previous activity Lifting Limitations: none, gradually increase as tolerated Exercise/Sports Limitations: rest today, gradually increase as tolerated May Resume Sexual Activity: when tolerated Shower/Bathe: no limitations Driving or Machine Use: no limitations . Instructions / Follow-Up Instructions / Follow-Up You were admitted to [facility] with chest pain and diagnosed with chest pain secondary to indigestion and anxiety. During your stay here you were treated with supportive care, had EKG completed, cardiac biomarkers were trended x 3 and were negative. Imaging studies which were completed include Stress treadmill echocardiogram, and was normal. Medications: You have been started on a medication called Zoloft (sertraline), a member of the Selective Serotonin reuptake inhibitors (SSRI's) category, for relieft of anxiety and improvement in your mood. C 1. Continue taking Zoloft 25 mg daily x next 4 weeks. Discuss with your PCP at follow up appointment to determine if the dose needs to be adjusted. You will likely not see immediate effect with this medication, because it takes 2-4 weeks to work. Side effects may include but are not limited to headache, gastrointestinal upset (nausea, vomiting, diarrhea), lightheadedness, dizziness. 2. Start taking Zantac (ranitidine)150 mg at bedtime to aid in indigestion. 3. Start taking Protonix (pantoprazole) 40 mg in the morning for indigestion. You may continue using tums on an as needed basis. 4. Continue taking all other medications as prescribed. Appointments: Follow up with your Primary Care Provider within 1 week. Current Hospital Diet Patient's current hospital diet: AHA Diet (Heart Healthy) Discharge Diet Recommended Diet: AHA Diet (Heart Healthy) Procedures Procedures Performed: Stress treadmill echocardiogram- normal Pending Studies Studies pending at discharge: no Laboratory Results Lipid Panel Test 08/21/17 05:37 Range/Units Triglycerides Level 74 0-150 mg/dl Cholesterol Level 196 0-200 mg/dl HDL Cholesterol 44 mg/dl Cholesterol/HDL Ratio 4.5 LDL Cholesterol, Calculated 137 mg/dl Medical Emergencies . Who to Call and When: Medical Emergencies: If at any time you feel your situation is an emergency, please call 911 immediately. . Non-Emergent Contact Non-Emergency issues call your: Primary Care Provider Call Non-Emergent contact if: you have a fever, temperature is above 100.5, your pain is not controlled, your pain is worsening, your pain is unusual for you, your pain is concerning you, you have any medication questions . Past History Medical & Surgical History: (1) Atypical chest pain (2) GERD (gastroesophageal reflux disease) (3) SALVADOR (generalized anxiety disorder) . "Provider Documentation" section prepared by Cindy Langston. . VTE Core Measure Inpt VTE Proph given/why not?: Krystin Villareal, SCD's
[2017-08-21] MEDS ORDERED: SERTRALINE HCL 50 MG TAB PO ONE (13:30)
--- NOTE | 2017-08-21 13:45 | Discharge Summary ---
Discharge Summary Date of Service Aug 21, 2017. Discharge Summary Admission Date: Aug 20, 2017 at 20:07 Discharge Date: Aug 21, 2017 Discharge Disposition: Home Principal Diagnosis: Atypical chest pain due to indigestion and anxiety Problems/Secondary Diagnoses: Chest pain - resolved GERD [place] Procedures: CHEST ONE VIEW PORTABLE 08/20/17 FINDINGS: Cardiomediastinal silhouette normal. Lungs and pleural spaces clear. Osseous structures normal. Upper abdomen normal. IMPRESSION: 1. No acute cardiopulmonary disease. Stress Treadmill Echocardiogram Interpretation Summary * Name: LATRICE MAGANA Study Date: 08/21/2017 10:15 AM BP: 134/82 mmHg * Patient Location: .2T\\S\\S230\\S\\2 HR: 64 * : 1960 (M/d/yyyy) Gender: Male Height: 69 in * Age: 57 yrs Ethnicity: CA Weight: 156 lb * Ordering Physician: Diane Singh * Referring Physician: Self, Referred * Performed By: Josefa Rajan [facility] * * Reason For Study: CHEST PAIN * BSA: 1.9 m2 * -- Conclusions -- * 1. Negative exercise stress echo for ischemia at >100% MPHR. * 2. Negative stress ECG for ischemia. * 3. Above average functional capacity. Exercised 10:25 min, acheiving 12.4 METS. * 4. No exercise induced chest pain. Normal hemodynamic response to exercise. * 5. Normal resting LV size and function. EF 60-65%. Normal RV size and function. Mild mitral regurgitation. * 6. No prior studies for comparison. Procedure Details * ECHOEX, CPT #[id number] * ECHO COLOR FLOW, CPT #[id number] * ECHO DOPPLER, CPT #[id number] Left Ventricle * The left ventricle is grossly normal size. * There is normal left ventricular wall thickness. * Ejection Fraction = 60-65%. * The left ventricular ejection fraction increases normally with stress. The left ventricular end-systolic cavity size reduces post-stress (normal response). The left ventricular wall motion with stress is normal. Right Ventricle * The right ventricle is grossly normal size. * The right ventricular systolic function is normal as assessed by tricuspid annular plane systolic excursion (TAPSE) (normal >1.5 cm). Atria * The left atrial size is normal. * Borderline right atrial enlargement. * No ASD detected; PFO is not assessed. Mitral Valve * The mitral valve is grossly normal. * There is no mitral valve stenosis. * There is mild mitral regurgitation. Tricuspid Valve * Tricuspid stenosis is absent. * There is trace tricuspid regurgitation. Aortic Valve * The aortic valve opens well. * The aortic valve is trileaflet. * No hemodynamically significant valvular aortic stenosis. * There is no significant aortic regurgitation. Pulmonic Valve * The pulmonary valve is inadequately visualized, but the Doppler data is adequate for interpretation. * There is no pulmonic valvular regurgitation. Great Vessels * The aortic root and proximal ascending aorta are normal sized. Pericardium * There is no pericardial effusion. Stress Parameters * Normal baseline electrocardiogram. * Stress ECG: No ST changes. No arrhythmias. * Arrhythmia noted in recovery: occasional PVC's. * The stress portion of this study was personally supervised by the undersigned interpreting physician. * Rest heart rate was '64' BPM. * Rest blood pressure was '134/82' * Maximum heart rate achieved was 171 bpm. * Maximum heart rate was 103 % of maximum age-predicted heart rate. * Maximum blood pressure was '150/76' * Total exercise time was '10:25' * Maximum exercise MET level achieved was '12.40' METS * Maximum treadmill speed was '4.20' miles per hour. * Maximum treadmill elevation was '16.00'% grade. Left Ventricular Findings with Stress * The study was technically excellent with all images being of optimal quality. Consultations: None Medication Reconciliation New Medications: Pantoprazole (Pantoprazole Sodium) 40 Mg Tab 40 MG PO QAM for 30 Days, #30 TAB Ranitidine (Zantac) 150 Mg Tab 150 MG PO HS for 30 Days, #30 TAB Sertraline HCl (Sertraline HCl) 25 Mg Tab 25 MG PO DAILY for 30 Days, #30 TAB Continued Medications: Alprazolam (Alprazolam) 0.25 Mg Tab 0.25 MG PO BID for 30 Days, #60 TAB Calcium Carbonate (Tums) 500 Mg Chew 500 MG PO DAILY PRN for HEARTBURN Famotidine (Pepcid) 20 Mg Tab 20 MG PO DAILY PRN for HEARTBURN, TAB Discharge Exam The patient was seen and examined this morning. Pt reports that he slept well overnight. He denies current chest pain but reports around 0730 he did have some epigastric burning which was relieved with liquid Maalox. Pt denies shortness of breath at rest or MENDEZ, palpitations, flutter, headache. He reports this pain seemed to be constant and there for long periods of time, not waxing or waning. Not worse with exertion or stress. Pt is to have stress treadmill test today after 3 neg troponins. He reports having worsening anxiety since April where he developed a spinal headache and had extensive neurology workup without specific findings. He currently still follows with neurology. He notes he still enjoys things he used to, and reports his focus is "ok" but has been better. Pt does recognize a slight drop off in work productivity since April. He also notes he has never tried any other type of medication for anxiety, and that his PCP placed him on xanax 0.25 mg BID prn anxiety since Apr. He has noticed a decrease in it efficacy, so some days requires 3 tablets throughout the day vs. 2. He denies issues with alcohol or tobacco use. Review of Systems: Constitutional: No fever, No chills, No weight loss, No fatigue Eyes: No redness, No diplopia ENT: No sore throat Respiratory: No cough, No sputum, No wheezing, No shortness of breath Cardiovascular: No chest pain, No orthopnea, No edema, No palpitations Abdomen: No pain, No nausea, No vomiting, No diarrhea, No GI bleeding, No problem reported (indigestion) Musculoskeletal: No joint pain, No swelling, No calf pain Genitourinary - Male: No hematuria, No dysuria Neurologic: No memory loss, No numbness/tingling Psychiatric: No depression symptoms Endocrine: No fatigue Integumentary: No rash, No itch Physical Exam: General Appearance: WD/WN, no apparent distress, + thin Eyes: PERRL, EOMI ENT: hearing grossly normal, pharynx normal Neck: supple, no JVD Respiratory/Chest: chest non-tender, lungs clear, no respiratory distress, no accessory muscle use, + pertinent finding (on RA) Cardiovascular: regular rate, rhythm, no murmur Abdomen / GI: normal bowel sounds, non tender, soft Extremities: no calf tenderness, no pedal edema, normal range of motion Neurologic/Psychiatric: alert, normal reflexes, + pertinent finding (flat affect) Skin: normal color, warm/dry Hospital Course History of Present Illness Source: patient This is a 57 y/o M who presents with 2 weeks of intermittent midsternal chest pain that started 2 weeks ago. He describes the pain as sharp and notices it most in the morning. He sometimes has a feeling of palpitations and chest tightness. He does also complain of shortness of breath and nausea. Deep inspiration may worsen the pain. He doesn't usualy have acid reflux but with the holidays his diet has been different. He took tums and pepcid which werent very helpful. He hasn't noticed increased pain or shortness of breath with exertion. rates his pain a 4/10 Denies smoking, calf tenderness, recent travel, recent srugery He does have a history of anxiety. No family history of premature CAD Works a desk job Physical Exam: General Appearance: no apparent distress Eyes: PERRL, EOMI Neck: supple, no JVD Respiratory/Chest: lungs clear, normal breath sounds, no respiratory distress, no accessory muscle use Cardiovascular: regular rate, rhythm, no edema, no murmur, normal peripheral pulses Abdomen/GI: normal bowel sounds, non tender, soft Extremities/Musculoskelatal: no calf tenderness, no pedal edema Neurologic/Psych: no motor/sensory deficits, alert, oriented x 3 Hospital Course: This is a 57 y/o M with PMHx of GERD, anxiety, spinal headache s/p unremarkable neurological workup who presents with atypical chest pain. Cardiac enzymes were trended x 3 sets and were negative. A stress treadmill echo was conducted and was normal. Chest pain resolved. Pt was started on ranitidine 150 mg QHS and pantoprazole 40 mg QAM while admitted. Pt also noted extreme anxiety which seemed to be uncontrolled with xanax. He has not ever tried other classes of medications and so was started on zoloft 25 mg daily for anxiety and depressive symptoms. Pt should follow up with PCP within 1 week. Chest pain r/o - Serial enzymes- negative x 3 - stress echo- normal - lipid profile - WNL Gerd - indigestion likely a large component of epigastric chest pain as he describes poor diet due to the holiday. - Pain relieved with maalox. - Continue pantoprazole 40 mg QAM and will also add rantidine 150 mg QHS to help with indigestion [place] - Started on zoloft 25 mg PO daily for anxiety and depressive sx due to low sexual dysfunction profile. Possible side effects and adverse reactions were discussed with the patient. Follow up with PCP within 1 week - dose adjustment may be made in as little as 2 weeks if pt notices some improvement in anxiety. Can increase per PCP. Effects may take 2-6 weeks to take effect, this was discussed with the pt and he expressed understanding. - Pt has never tried other agents for anxiety and he describes building a tolerance to xanax at this time with needs to take 3 tablets on some days compared to 2 tablets. - Pt may continue alprazolam 0.25 mg BID prn for anxiety per PCP. DVT ppx: SCDs, ambulatory Code: Full Disposition: From home, discharge today. PA Physician Supervision Note: I interviewed and examined the patient. Discussed with Concepción ANTONY and agree with findings and plan as documented in the note. Any exceptions or clarifications are listed here: None Patient presented with atypical chest pain and a negative stress test we discussed both GERD and anxiety as part of his disease process he is agreeable to taking both Zoloft and Zantac and prescriptions were given at time of discharge. I visited the patient and his room with a significant at bedside his cardiac exam was regular lungs are clear vitals are stable ago home on the above listed medications with recommend follow-up with his primary care physician Documented By: Jigar Elizabeth Total Time Spent: Greater than 30 minutes This includes examination of the patient, discharge planning, medication reconciliation, and communication with other providers. Discharge Instructions Please refer to the electronic Patient Visit Report (Discharge Instructions) for additional information. Follow-Up Follow up with your Primary Care Provider within 1 week. Additional Copies To Hroace Porras M.D.
[2017-08-21 14:06] VITALS: BP 119/83; PULSE 66; TEMP 37.1; O2SAT 98
--- NOTE | 2017-08-21 14:26 | NUR ---
A: Discharge instructions given to patient and all questions answered. Saline lock and tele removed. Pt d/c to home with family and all belingings.l
== END 2017-08-21 14:32 | disposition home or self-care (01) ==
LOC: C.EDB 16:28 → C.2T 20:07 → ENRESERV 20:20
PROVIDERS: ADMIT Hospitalist; ATTEND Internal Medicine
DX: K30 Functional dyspepsia (principal); F41.9 Anxiety disorder, unspecified; K21.9 Gastro-esophageal reflux disease without esophagitis; Z83.3 Family history of diabetes mellitus; Z82.49 Family history of ischemic heart disease and other diseases of the circulatory system; Z82.5 Family history of asthma and other chronic lower respiratory diseases

== ENCOUNTER → 2017-09-09 | Outpatient (CLI) | payer OTHER ==
[~2017-09-09] MED LIST changes: -ACETAMINOPHEN 500 MG TAB PO PRN; +ALPR-412 PO; +CALC500C3 PO; +FAMO20TA11 PO; +PRT40 PO; +SERT1TAB88 PO; +ZNTT/150 PO
--- NOTE | 2017-09-09 10:48 | DIAGNOSTIC IMAGING REPORT ---
ABDOMINAL ULTRASOUND, RIGHT UPPER QUADRANT HISTORY: Epigastric pain. COMPARISON: Abdominal ultrasound October 29, 2015. FINDINGS: The liver is sonographically normal. The previously described 6 mm echogenic right hepatic lobe lesion shown on exam of October 29, 2015 is not visualized on this exam. There is no biliary ductal dilatation. The gallbladder is normal. There are no gallstones. The pancreatic body is normal. The head and tail are partially obscured. There is no right hydronephrosis. IMPRESSION: 1. No gallstones or biliary ductal dilatation. 2. Partially obscured pancreas. Electronically signed by: Pipe Moore M.D. 09/09/2017 10:47 AM Dictated Date/Time: 09/09/2017 10:45 AM
== END | disposition home or self-care (01) ==
LOC: C.ULTR 10:05
PROVIDERS: ATTEND Family Medicine
DX: R10.13 Epigastric pain (principal)

== ENCOUNTER → 2017-10-06 | Outpatient (CLI) | payer OTHER ==
[~2017-10-06] MED LIST changes: +SINCALIDE INJ 1.36 MCG in SODIUM CHLORIDE 0.9% 100ML 100 ML IV ONE; -ZNTT/150 PO
--- NOTE | 2017-10-06 10:32 | DIAGNOSTIC IMAGING REPORT ---
NUCLEAR MEDICINE HEPATOBILIARY SCAN WITH EJECTION FRACTION HISTORY: Generalized abdominal pain. COMPARISON: Abdominal ultrasound 09/09/2017. TECHNIQUE: Immediately following the intravenous administration of 5.2 mCi Tc-99m Choletec, dynamic anterior abdominal imaging pre/post 1.4 mcg of Kinevac was performed. FINDINGS: Uniform hepatic tracer accumulation is shown. Prompt intrahepatic biliary excretion is seen. The gallbladder, common bile duct, and small bowel are all visualized by 25 minutes. This appearance represents the normal sequence of biliary excretion. The gall bladder ejection fraction following administration of Kinevac was 42% (normal >35%). IMPRESSION: 1. No evidence for cystic duct obstruction. 2. Gallbladder ejection fraction calculated to be 42 %. Electronically signed by: Bennett Nick M.D. 10/06/2017 10:31 AM Dictated Date/Time: 10/06/2017 10:30 AM
== END | disposition home or self-care (01) ==
LOC: C.NUCL 07:44
PROVIDERS: ATTEND Family Medicine
DX: R10.9 Unspecified abdominal pain (principal)

== ENCOUNTER → 2017-12-02 | Outpatient (CLI) | payer OTHER ==
[~2017-12-02] MED LIST changes: -SINCALIDE INJ 1.36 MCG in SODIUM CHLORIDE 0.9% 100ML 100 ML IV ONE
--- NOTE | 2017-12-02 20:12 | MYOCARDIAL PERFUSION SCAN ---
REQUESTING PHYSICIAN: Nahum Martinez PA-C PRIMARY CARE DOCTOR: Horace Porras MD ONE-DAY NUCLEAR MEDICINE TECHNETIUM-99M CARDIOLITE MYOCARDIAL PERFUSION SCAN. STUDY INDICATION: Atypical chest pain. BASELINE EKG: Normal sinus rhythm at a ventricular rate of 68 with questionable old septal infarct. There were no significant ST abnormalities. STRESS EKG: The patient exercised for 11 minutes and 3 seconds achieving a peak heart rate of 160 representing 96% of maximum predicted heart rate. Blood pressure janett from 128/79-148/74. There were no exercise-induced ST changes or arrhythmias. TECHNIQUE: For the stress portion of the study 31.9 mCi of technetium-99m Cardiolite IV was injected at 11:12 a.m. on 12/02/2017, 15 minutes following the injection, imaging of the heart was performed in multiple projections. For the rest portion of the study 11.2 mCi of technetium-99m Cardiolite was injected IV at 9:25 a.m., 1 hour following the injection, imaging of the heart was performed in the same projections. FINDINGS: The rotating raw images were reviewed in detail. There was minimal gut uptake, which was removed from the inferior imaging border of the heart. There was slight diaphragmatic shadow notable on both stress and rest. There was no significant extracardiac pathologic uptake. The short axis, horizontal long axis, vertical long axis images were reviewed in detail. There was a subtle mild fixed perfusion defect involving the mid inferior and inferoseptal avila. There was no significant reversibility and the summed rest score was 4. Otherwise, there were no significant exercise-induced perfusion defects. LV size was normal end-diastolic volume was 71 mL. Calculated ejection fraction was normal at 73%. There are no significant regional wall motion abnormalities. IMPRESSION: 1. Negative exercise myocardial perfusion study for ischemia. 2. Small subtle inferior/inferoseptal perfusion defect which likely represents artifact in the setting of preserved left ventricular function. Less likely small prior infarct. 3. Negative exercise EKG for ischemia at 96% maximum predicted heart rate. 4. Above average functional capacity, exercised 11 minutes achieving 13.4 metabolic equivalents. No exercise-induced chest pain. Normal hemodynamic response to exercise. 5. Normal left ventricular size and function, calculated ejection fraction of 73% with no regional wall motion abnormalities. 6. Overall, the study findings in total suggest a low risk for future adverse cardiac events. MTDD
== END | disposition home or self-care (01) ==
LOC: C.NUCL 09:05
PROVIDERS: ATTEND Physician Assistant Medical
DX: R07.89 Other chest pain (principal)

== ENCOUNTER → 2018-03-24 | Outpatient (CLI) | payer OTHER ==
[~2018-03-24] MED LIST changes: +PANT1TAB4 PO; -PRT40 PO
--- NOTE | 2018-03-25 05:37 | PAP/PSG TECHNICIAN REPORT ---
[facility] White Mixing Operator Polysomnogram Report Study name: None Report date: 03/25/2018 Study date: 03/24/2018 Referring Physician: DR. ROLAN VILLAFANA M.D. Name: LATRICE MAGANA Interpreting Physician: Quan Carlos M.D. Date of : 1960 White Mixing Operator: Nano Yusuf RPSGT. Sex: Male Age: 58 StudyType: PSG Weight: 145 lbs Height: 58 years, Height 5' 8.5" Neck Circum:13.5inches BMI: 21.72 Medications: Zoloft 100mg Patient History 58 YR old male here tonight for a diagnostic psg. He complains of fatigue and restless legs. His ESS=3/24. Neck circ=13.5inches Parameters Monitored NPSG: E1-M2, E2-M1, Fp1-M2, Fp2-M1, F3-M2, F4-M2, F4-M1, C3-M2, C4-M2, C4-M1, O1-M2, O2-M2, O2-M1, T3-M2, T4-M1, P3-M2, P4-M1, CHIN1, CHIN2, HR, EKG, Legs, PFLOW, SNOR, FLOW, CFLOW, Tidal Volume, THOR, ABDO, SpO2, PLTH, CPRESS, ETCO2 Wave, ETCO2, pH Sleep Architecture Sleep Stages Time at Lights Off 9:59:14 PM STAGES Time (min.) TST (%) Time at Lights On 5:23:44 AM Wake 118.0 -- Total Recording Time (TRT) 444.50 min. N1 16.5 5 Total Sleep Period (TSP) 399.5 min. N2 258.0 79 Total Sleep Time (TST) 326.5min. N3 34.0 10 Awake Time 118.0 min. REM 18.0 6 Wake after Sleep Onset 74.5 min. Sleep Efficiency (SE) 73 % Sleep Onset Latency (MANSI) 43.5 min. Number of Stage 1 Shifts None Awakenings 14 Stage Changes 51 Number of REM periods 2 REM 18.0 6 REM Latency 206.0 min. NREM 308.5 94 Body Position Analysis Supine Right Left Side Prone Vertical Total Sleep Time (min.) 190.4 68.0 115.0 183.00 0.0 0.0 Total Sleep Time (%) 44% 21% 35% 56 0% N/A% Total Sleep Time REM (min.) 18.0 0.0 0.0 None 0.0 0.0 Total Sleep Time NREM (min.) 125.5 68.0 115.0 None 0.0 0.0 Intermittent Wake (min.) 46.9 6.6 64.5 None 0.0 0.0 Total Sleep Period (%) 44% None None None None None Arousals Myoclonus (PLM) * Events Count Index Events Count Index Spontaneous 11 2 Events Awake (PLMW) 67 34.1 Respiratory 1 0.4 Events Asleep w/ Arousal (PLMA) 3 0.6 PLM 2 1 Events Asleep w/o Arousal (PLMS) 56 10.3 Snoring 2 0 Total Asleep 59 10.8 Total 16 3 Total 126 17 Respiratory Analysis * CA OA MA CH H RERA Total Count 0 1 0 0 1 0 2 Index 0.0 0.2 0.0 0 0.2 0 0.4 Mean Duration 0.0 14.6 0.0 0.00 38.0 0.0 26.3 Longest Duration 0.0 14.6 0.0 0.00 0.0 0.0 38.0 Respiratory Event Summary Total Supine ~Supine Right Left Prone REM NREM Apneas Count 1 1 0 0 0 N/A 1 0 Index 0.2 0 0 0.0 0.0 N/A 3 0 Hypopneas (4% Desat) Count 1 1 0 0 0 N/A 1 0 Index 0.2 0.4 0 0.0 0.0 N/A 3.3 0.0 Apneas & All Hypopneas Count 2 2 0 0 0 N/A 2 0 Index 0.4 1 0 0 0 N/A 6.7 0.0 Respiratory Events (Hvac Design Mechanical Engineer+All Hyp+RERA) Count 2 2 0 0 0 N/A 2 0 Index 0.4 1 0 0.0 0.0 N/A 6.7 0.0 Respiratory Related Arousal Count 1 2 0 0 0 N/A 2 0 Index 0.4 1 0 0 0 N/A 7 0 Snoring Analysis Supine Right Left Prone REM NREM Total Snore duration 0.4 min Snores count 12 3 1 N/A 5 11 16 Snore mean duration 1.6 Sec Snores index 5 3 1 N/A 16.7 2.1 2.9 TST with snoring (%) 0.1% Desaturation Event Summary: Minimum %SpO2 Event Count Mean/Min/Max Duration(sec.) Desaturation Index % Time In Bed > 90 0 N/A 0.0 98.3 86 - 90 0 N/A 0.0 1.7 81 - 85 0 N/A 0.0 0.0 76 - 80 0 N/A 0.0 0.0 71 - 75 0 N/A 0.0 0.0 66 - 70 0 N/A 0.0 0.0 61 - 65 0 N/A 0.0 0.0 56 - 60 0 N/A 0.0 0.0 51 - 55 0 N/A 0.0 0.0 < 50 0 N/A 0.0 0.0 Total REM NREM Awake <50% 0.0 min. 0.0 min. 0.0 min. 0.0 min. 51 - 60% 0.0 min. 0.0 min. 0.0 min. 0.0 min. 61 - 70% 0.0 min. 0.0 min. 0.0 min. 0.0 min. 71 - 80% 0.0 min. 0.0 min. 0.0 min. 0.0 min. 81 - 90% 7.4 min. 0.0 min. 7.3 min. 0.1 min. 91 - 100% 430.5 min. 18.0 min. 300.5 min. 112.0 min. Average 93 92 92 93 Minimum SpO2 87 91 90 87 Desaturation Event Index 0.0 0.0 0.0 0.0 # Desat. Events below 89% 0 0 0 0 Time(%) with Saturation below 89% 0.0 0.0 0.0 0.0 Time(min.) with Saturation below 89% 0.0 0.0 0.0 0.0 Time (mins) REM (mins) NREM (mins) % of TST SpO2 Below 90% 0 0 N0 0.0 SpO2 Below 88% 326 18 308 0 Heart Rate Analysis Min (bpm) Max (bpm) Average (bpm) Awake 48 102 55 NREM 47 63 52 REM 52 69 59 Overall 47 69 52 Supplemental O2 Values Minimum O2 level: None Value Start Time End Time White Mixing Operator Comments Mr. Magana slept in the right, left and supine positions. No cardiac arrhythmia noted. Some leg movements were noted. No bruxism noted. Snoring was noted and scored as a 1 on a scale of 1 through 5. (0=no snoring, 5=snoring loud enough to be heard through a closed door or down the jacob[address] way) He awoke to use the restroom 1 time during the night. He stated that he slept a little better than when at home. His legs did not move as much as usual. The final report will be interpreted and signed by a sleep physician. The completed physician report will then be placed in the patient medical record. Therapy (cm H2O) 0 TIB (min.) 444.5 TST (min.) 326.5 Sleep Onset (min.) 43.5 REM Onset From Sleep (min.) 206.0 Sleep Efficiency % 73 Wakefulness (%) 27 Wakefulness (min.) 118.0 NREM 1 (%) 5 NREM 1 (min.) 16.5 NREM 2 (%) 79 NREM 2 (min.) 258.0 NREM 3 (%) 10 NREM 3 (min.) 34.0 REM (%) 6 REM (min.) 18.0 # Arousals 16 Arousal Index 3 # Snore 16 Snore Index 2.9 AHI 0.4 AHI Supine 1 AHI Non-Supine 0 NREM AHI 0.0 REM AHI 6.7 RDI 0.4 # Obstructive Apnea 1 # Central Apnea 0 # Mixed Apnea 0 # Hypopneas 1 RERAs 0 Total Respiratory Events 2 Time Below SpO2 89% (min.) 0.0 Mean NREM SpO2 (%) 92 Mean REM SpO2 (%) 92 Mean Sleep SpO2 (%) 92 Min NREM SpO2 (%) 90 Min REM SpO2 (%) 91 Position Supine (min.) 190.4 Position Non-supine (min.) 183.0 LM Index Sleep 10.8 LM Index NREM 10.7 LM Index REM 13.3 Mean Heart Rate (bpm) 52 Min Heart Rate (bpm) 47
== END | disposition home or self-care (01) ==
LOC: C.NEUR 20:00
PROVIDERS: ATTEND Family Medicine
DX: G47.69 Other sleep related movement disorders (principal); R53.83 Other fatigue